=== PATIENT | female | born 1960 ===

== ENCOUNTER → 2016-05-10 | Day surgery (SDC) | payer OTHER ==
[2016-04-27 10:34] VITALS: Ht 152.4 cm; Wt 46.4 kg
[~2016-05-10] VITALS: Ht 152.4 cm; Wt 46.4 kg
[~2016-05-10] MED LIST: ATROPINE SULFATE 0.1 MG/ML 5ML SYR IV PRN; BUPIVACAINE/EPINEPHRINE 0.25% 1:200,000 30 ML VIAL ONE; CEFAZOLIN 1000MG/55 ML D5W IV SCH; CHOL20009 PO; DEXAMETHASONE SOD INJ 4 MG/ML VIAL ONE; EpHEDrine SULFATE INJ 50 MG/ML AMP IV PRN; EpINEphrine INJ 1MG/ML AMP 1 MG/ML AMP ONE; FENTANYL CITRATE INJ 50 MCG/1 ML 2 ML VIAL IV PRN; FENTANYL CITRATE INJ 50 MCG/1 ML 2 ML VIAL ONE; KETO10TA PO; LACTATED RINGER'S 1000ML 1,000 ML IV SCH; LIDOCAINE HCL 2% 2 ML VIAL (20MG/ML) ONE; METOPROLOL TARTRATE 1 MG/ML VIAL IV STA; METOPROLOL TARTRATE 1 MG/ML VIAL ONE; MIDAZOLAM HCL 1 MG/ML 2ML VIAL ONE; MISCCAP80 PO; ONDANSETRON INJ 2 MG/ML 2 ML VIAL IV PRN; ONDANSETRON INJ 2 MG/ML 2 ML VIAL ONE; OXYC-57 PO; OXYCODONE/ACETAMINOPHEN 5-325 TAB PO PRN; PROPOFOL IV EMULSION 10 MG/ML 20 ML VIAL IV ONE; ROPIVACAINE 0.5% 5 MG/ML 30 ML VIAL ONE; SODIUM CHLORIDE 0.9% 1000ML 1,000 ML IV SCH
--- NOTE | 2016-05-10 11:56 | History & Physical Bridge - [place] ---
H&P Re-Evaluation Bridge Note: I have examined the patient, reviewed the History & Physical and in the interval since the performance of the History & Physical I have noted the following changes of clinical significance: No changes noted
--- NOTE | 2016-05-10 13:58 | [facility] Post Operative Brief Note ---
Immediate Operative Summary Operative Date May 10, 2016. Pre-Operative Diagnosis Left Shoulder Full Thickness Rotator Cuff Tear Post-Operative Diagnosis Same Procedure(s) Performed Left Shoulder Arthroscopy, Small Rotator Cuff Repair, Open Biceps Tenodesis, Capsular Release Surgeon Dr Pepe Tin Flopper Surgeon(s) Lior Salcedo PA-C Estimated Blood Loss 5ml Findings as above Specimens None Complication(s) None Disposition Recovery Room / PACU
--- NOTE | 2016-05-10 14:15 | Discharge Instructions-SurgCtr ---
Discharge Instructions Date of Service May 10, 2016. Visit Reason for Visit: Left Shoulder Full Thickness Rotator Cuff Tear Discharge Discharge Diagnosis / Problem: SAME ABOVE Discharge Goals Goal(s): Decrease discomfort, Improve function Activity Recommendations Activity Limitations: as noted below Lifting Limitations: until after follow-up appointment Exercise/Sports Limitations: until after follow-up appointment Shower/Bathe: may shower/bathe in 3 days Anesthesia . Post Anesthesia Instructions: If you have had General Anesthesia or IV Sedation: * Do not drive today. * Resume driving when surgeon permits. * Do not make important decisions or sign legal documents today. * Call surgeon for: 1. Temperature elevations greater than 101 degrees F. 2. Uncontrollable pain. 3. Excessive bleeding. 4. Persistent nausea and vomiting. 5. Medication intolerance (nausea, vomiting or rash). * For nausea and vomiting use only clear liquids such as: tea, soda, bouillon until nausea subsides, then gradually increase diet as tolerated. * If you have any concerns or questions, call your surgeon's office. If physician is unavailable and it is an emergency, call 911 or go to the nearest emergency room. . Instructions / Follow-Up Instructions / Follow-Up MEDICATIONS: * Resume previous medications unless instructed otherwise by your surgeon. * Always take pain medication on a full stomach or with food to avoid upset stomach. * Do not drink alcohol or drive while taking narcotics. * Ibuprofen or Tylenol may be taken if narcotic not needed. SPECIAL CARE INSTRUCTIONS: __ None _X_ Keep extremity elevated and iced x 48 hours; apply ice 20-30 minutes 8-10 times/day. May remove at night. __ Sling __24 hrs/day __ Remove at night _X_ Shoulder Immobilizer (MAY REMOVE AFTER 48 HOURS ONLY TO SHOWER AND FOR THERAPY) _X_ 24 hrs/day __ Remove at night _X_ Dressing __ Maintain until seen in office, may shower with plastic over site _X_ Remove dressings in 24-48 hours and then may shower _X_ Cover incisions with band-aids after showering _X_ Do not remove steri-strips (THEY MAY FALL OFF ON THEIR OWN) Call physician if chills or temperature rises above 102 degrees or pain unrelieved by prescribed pain medications at . . Diet Recommendations Home Diet: no limitations Fluid Restriction: None Procedures Procedures Performed: Left Shoulder Arthroscopy, Small Rotator Cuff Repair, Open Biceps Tenodesis, Capsular Release Pending Studies Studies pending at discharge: no Work Instructions Return To Work: after follow-up Lifting Limitations: NO LIFTING WITH LEFT ARM Medical Emergencies . Who to Call and When: Medical Emergencies: If at any time you feel your situation is an emergency, please call 911 immediately. . Non-Emergent Contact Non-Emergency issues call your: Primary Care Provider Call Non-Emergent contact if: you have a fever, temperature is above 101.5 . . "Provider Documentation" section prepared by Deins Salcedo.
[2016-05-10 14:43] VITALS: TEMP 36.4
--- NOTE | 2016-05-10 14:56 | OPERATIVE REPORT ---
DATE OF OPERATION: 05/10/2016 PREOPERATIVE DIAGNOSIS: Small rotator cuff tear of the left shoulder. POSTOPERATIVE DIAGNOSES: Small rotator cuff tear with biceps tendinopathy and adhesive capsulitis, mostly involving the rotator interval. PROCEDURE: Left shoulder diagnostic arthroscopy with extensive debridement, lysis of adhesions including the superior and middle glenohumeral ligaments, acromioplasty, small rotator cuff repair and open biceps tenodesis. SURGEON: Dr. Tim Pepe. COMMERCIAL ACCOUNTANT: Lior Salcedo PA-C, whose assistance was necessary for positioning the arm and helping with instrumentation. ANESTHESIA: General with a left interscalene nerve block. COMPLICATIONS: None. CONDITION: Stable to PACU. INDICATIONS: Shira is a pleasant 55-year-old female who presented to my office with a 1 year history of left shoulder pain. MRI and clinical examination were diagnostic mostly for small rotator cuff tear. She elected to proceed with arthroscopy. She understood the risks, benefits, alternatives to procedure and elected to proceed. DESCRIPTION OF PROCEDURE: On 05/10/2016, she arrived at [facility] for the above procedure. She was seen in the preoperative holding area and the operative extremity was identified and signed. She was given a preoperative antibiotic, taken back to the operating room, laid on the table in supine position and put under general anesthesia. She was then put into the beachchair position. The left shoulder was prepped and draped in sterile fashion. Time-out was done and the patient and operative extremity was properly identified. On preoperative physical examination, she only had about 70 degrees of abduction and 45 degrees of external rotation. Then, a scope was placed in the posterior portal. Diagnostic arthroscopy showed no cartilage damage to the humeral head or the glenoid. There was a lot of redness and thickening of the rotator interval of the superior and middle glenohumeral ligaments. The anterior inferior glenohumeral ligament looked okay. The biceps tendon was a kind of scarred into the superior glenohumeral ligament and there was a tear of the anterior edge of the supraspinatus. The remainder of the rotator cuff was intact. An anterior portal was made. A shaver and ablator were used to do a complete debridement of the intraarticular structures including lysis of adhesions of the rotator interval including the superior and middle glenohumeral ligaments. The biceps tendon was then arthroscopically tenotomized. Arthroscopic instruments were removed from the shoulder. Gentle manipulation was done under anesthesia and I was able to get full range of motion of her shoulder. The scope was then put into the subacromial space. A lateral portal was made. A shaver was used to do a complete subacromial and subdeltoid bursectomy. An ablator was used to tease the coracoacromial ligament off the undersurface of the acromion and a 5-0 mildred was used to complete an acromioplasty of a Bigliani type 2 acromion. A shaver was used to remove any excess debris. The bursal side of the rotator cuff was examined extensively with evidence of a small anterior rotator cuff tear. An additional anterolateral portal was made and Omayra cannula was placed. The greater tuberosity was prepared with a ring curette. The rotator cuff was fixed with an Arthrex modified SpeedBridge configuration using two 4.75 mm BioComposite SwiveLock suture anchors and FiberTape. This gave a nice fixation. The scope was placed back into the glenohumeral joint and the articular margin of rotator cuff had been restored. Arthroscopic instruments removed from the shoulder. Attention was turned to an open biceps tenodesis. A small incision was made over the inferior border of the pec major. Dissection was taken down through the fascia and the long head of biceps tendon was delivered out of the wound. The tendon was then whip stitched at the anticipated level of tenodesis and the remainder of the tendon was discarded. A 5-mm hole was drilled in the bicipital groove and the biceps tendon was tenodesed with an Arthrex biceps button that was passed through the 5-mm hole and out the posterior cortex and flipped in a tension slide technique to deliver the tendon into the 5-mm hole. This gave good fixation. The wound was then irrigated and closed with 3-0 Vicryl and running 3-0 Monocryl. Steri-strips were placed. Portal sites were closed with 3-0 nylon. She was then placed in a soft dressing and an abduction arm sling. She was then extubated, transferred to a [facility] and taken to the postanesthesia care unit in stable condition. She tolerated the procedure well. I attest to the content of the Intraoperative Record and any orders documented therein. Any exceptio ns are noted below.
--- NOTE | 2016-05-10 15:21 | Anesthesia Progress Nt - [facility] ---
Anesthesia Post Op Note Date & Time May 10, 2016 at 15:21 Vital Signs Pain Intensity: 0 Vital Signs Past 12 Hours Date Time Temp Pulse Resp B/P Pulse Ox O2 Delivery O2 Flow Rate FiO2 05/10/16 14:43 36.4 86 16 152/90 100 Room Air 05/10/16 14:40 90 12 144/90 98 05/10/16 14:39 36.4 05/10/16 14:37 88 15 100 05/10/16 14:37 89 15 05/10/16 14:35 137/90 05/10/16 14:32 93 13 05/10/16 14:32 93 13 99 05/10/16 14:30 143/90 05/10/16 14:27 90 10 05/10/16 14:27 89 10 100 05/10/16 14:25 147/92 05/10/16 14:22 93 20 05/10/16 14:22 94 20 100 05/10/16 14:20 142/91 05/10/16 14:20 100 142/91 05/10/16 14:17 99 17 100 05/10/16 14:17 99 17 05/10/16 14:15 140/81 05/10/16 14:12 102 18 100 05/10/16 14:12 102 18 05/10/16 14:10 144/83 05/10/16 14:07 116 11 05/10/16 14:07 115 11 100 05/10/16 14:06 36.6 110 14 145/92 100 Diffusion Mask 8 05/10/16 12:41 87 11 99 05/10/16 12:41 87 05/10/16 12:40 143/82 05/10/16 12:36 87 05/10/16 12:36 87 0 98 05/10/16 12:35 143/90 05/10/16 12:33 142/96 05/10/16 12:31 0 05/10/16 12:26 0 05/10/16 12:21 0 05/10/16 12:16 0 05/10/16 12:11 0 05/10/16 10:51 37.0 82 18 132/94 95 Room Air Notes Mental Status: alert / awake / arousable, participated in evaluation Pt Amnestic to Procedure: Yes Nausea / Vomiting: adequately controlled Pain: adequately controlled Airway Patency, RR, SpO2: stable & adequate BP & HR: stable & adequate Hydration State: stable & adequate Anesthetic Complications: no major complications apparent
[2016-05-10 15:30] VITALS: BP 136/88; PULSE 87; O2SAT 100
== END | disposition home or self-care (01) ==
LOC: X.SURG 09:50
PROVIDERS: ATTEND Orthopaedic Surgery
DX: M75.102 Unspecified rotator cuff tear or rupture of left shoulder, not specified as traumatic (principal); M75.22 Bicipital tendinitis, left shoulder; M75.02 Adhesive capsulitis of left shoulder; D64.9 Anemia, unspecified; Z98.890 Other specified postprocedural states